=== PATIENT | female | born 1975 | race Caucasian/White ===

== ENCOUNTER → 2017-07-02 | Outpatient (CLI) | payer MEDICARE, MEDICAID ==
--- NOTE | 2017-07-02 11:18 | Diagnostic Imaging Report ---
PROCEDURE: MRI lumbar spine. TECHNIQUE: Multiplanar, multisequence MRI of the lumbar spine was performed without contrast. INDICATION: Back pain. Bilateral leg numbness. FINDINGS: There is a transitional lumbosacral junction with prominent rudimentary disc between S1 and S2 and partial lumbarization of the sacral ala at S1. There is minimal posterior translation of L5 over S1. The alignment of the posterior spinal line otherwise is preserved. The vertebral body heights are normal. There is mild disc height loss at L5/S1 level and disc desiccation. Other discs appear normal. The bone marrow demonstrate generally normal signal. The cauda equina and conus medullaris appear grossly unremarkable. T12/L1: There is no disc herniation, no spinal canal or foraminal stenosis. L1/2: No disc herniation, no spinal canal or foraminal stenosis. L2/3: No disc herniation. There is mild facet hypertrophy. No central canal or lateral recess stenosis. No foraminal narrowing. L3/4: There is no disc herniation. There is mild facet hypertrophy. No central canal, lateral recess or foraminal stenosis. L4/5: There is no disc herniation. There is mild to moderate facet hypertrophy. No central canal stenosis. No lateral recess stenosis of significance. The foramina demonstrate no significant stenosis. L5/S1: There is no disc herniation. There is mild to moderate facet hypertrophy. No central canal stenosis. There is bilateral mild lateral recess stenosis. Mild foraminal narrowing is seen bilaterally. IMPRESSION: Lower lumbar spine facet hypertrophy is seen most prominent at L5/S1 with mild bilateral foraminal stenosis at this level. No significant spinal canal stenosis at any level. Please note transitional lumbosacral junction with partially lumbarized S1 seen. Dictated by: Dictated on workstation # [id number]
== END ==
LOC: RAD 09:22
PROVIDERS: ATTEND Physician Assistant
DX: M48.07 Spinal stenosis, lumbosacral region (principal); M89.38 Hypertrophy of bone, other site
CPT/HCPCS: 72148

== ENCOUNTER 2017-08-04 12:56 | Outpatient (RCR) | payer MEDICARE, MEDICAID | END 2017-08-31 10:52 | disposition home or self-care (01) | PROVIDERS: ATTEND Physician Assistant | DX: M54.2 Cervicalgia (principal); M54.16 Radiculopathy, lumbar region ==